=== PATIENT | male | born 1960 | race Caucasian/White ===

== ENCOUNTER 2024-04-05 14:20 | Emergency (ER) | payer OTHER, SELFPAY ==
--- NOTE | 2024-04-05 14:30 | ED.GENMED ---
ED Provider Triage
<Reyes Amaya Jr., PA-C - Last Filed: 04/07/24 07:02>
-
Patient seen by provider in Triage?: Seen in Triage
Attestation: A medical screening examination has been initiated by a qualified medical provider. Based on the assessment performed at this time, it has been determined that an emergent medical condition may exist and the patient has been informed
that further medical evaluation and possible additional diagnostic testing may be needed.
HPI: 63-year-old male presenting to the emergency department today with concerns of palpitations. Recently had a pericardial effusion which was drained at [facility] was initially at [facility]. Discharged 1 week ago. Labs/CXR
ordered
GENERAL: Alert , in no apparent distress
EYE: No visual abnormalities.
NECK: Trachea midline
ENT: No visible abnormalities.
LUNGS: No acute respiratory distress
NEUROLOGICAL: Alert and oriented
SKIN: Skin intact. No visible changes.
MUSCULOSKELETAL: Moving extremities normally
PSYCH: Normal and appropriate interaction.
This is a medical evaluation conducted in person to initiate diagnostic evaluation and provide initial therapeutics. Please see further documentation by the treating clinician.
History of Present Illness
<Reyes Amaya Jr., PA-C - Last Filed: 04/07/24 07:02>
General
Chief Complaint: Cardiac Symptoms
Time Seen by Provider: 04/05/24 14:50
<Padilla Burger PA-C - Last Filed: 04/05/24 17:35>
General
Source: patient
Exam Limitations: none
History of Present Illness
History of Present Illness:
63-year-old male with history of cholangiocarcinoma presents with palpitations onset about 2 hours prior to arrival. He was sitting and felt his heart started racing. His smart watch went from a heart rate in the 70s to 140. He has a history of
A-fib. He is on Eliquis. Of note recent history includes septic arthritis of his left knee that was initially treated at [facility]. While there he developed volume overload status and cardiac tamponade. He was flown to [facility]
and had pericardiocentesis. Since then he was switched to Eliquis. He also is on Lasix. He denies chest pain. He does note aching in his jaw. He denies shortness of breath. He states currently he feels a little bit better than what he did
earlier today. No vomiting or diarrhea. No fever. No other complaints at this time
Past History
<Reyes Amaya Jr., PA-C - Last Filed: 04/07/24 07:02>
Past History
ED Past Medical History: Arrthythmia (Atrial Fibrillation), Cancer and HTN
Social History
Tobacco: Non-smoker
Phy Exam
<Padilla Burger PA-C - Last Filed: 04/05/24 17:35>
Physical Exam
Physical Exam:
General: Well-appearing male no acute respiratory distress
HEENT: Normocephalic atraumatic
Heart: Regular rate and rhythm no murmurs
Lungs: Clear no obvious wheeze or rales
Abd: soft, nontender, nondistended
Ext: No cyanosis or edema
Course
<Reyes Amaya Jr., PA-C - Last Filed: 04/07/24 07:02>
Orders/Labs/Results
Orders:
Orders
04/05/24 14:21
Electrocardiogram (*1) Urgent
Reason for Study: Atrial Fibrillation
EKG- Treatment ONCE
04/05/24 14:30
CR Chest Portable - 1 View Urgent
Comment:
Reason For Exam: 64cp
Reason Study Needs to be Portable: Patient Unstable
04/05/24 14:40
Complete Blood Count/With Diff Urgent
Comprehensive Metabolic Panel Urgent
Magnesium Urgent
Manual Differential Urgent
NT-proBNP Urgent
PTT Urgent
Troponin I Urgent
Abnormal Lab Results
04/05/24
14:40
WBC 16.7 H 10^3/uL
(4.8-10.8)
RBC 4.38 L 10^6/uL
(4.70-6.10)
Hgb 10.6 L g/dL
(13.0-18.0)
Hct 34.3 L %
(39.0-52.0)
MCV 78.3 L fL
(80.0-94.0)
MCH 24.2 L pg
(27.0-31.0)
MCHC 30.9 L g/dL
(33.0-37.0)
RDW 27.0 H %
(11.5-14.5)
Abs Neuts (Manual) 13.6 H 10^3/uL
(1.4-6.5)
Segmented Neutrophils 80 H %
(42-75)
Lymphocytes (Manual) 2 L %
(20-51)
Monocytes (Manual) 11 H %
(2-9)
Sodium 134 L mmol/L
(135-145)
Chloride 94 L mmol/L
(98-107)
BUN 41 H mg/dl
(9-20)
Glucose 140 H mg/dl
(70-99)
Calcium 8.3 L mg/dl
(8.4-10.2)
ALT 54 H U/L
(0-50)
Alkaline Phosphatase 135 H U/L
(38-126)
04/05/24 14:40
04/05/24 14:40
Vital Signs
Initial and Last Documented VS:
Initial Vital Signs
Temp Pulse Resp Pulse Ox
97.8 F 107 18 97
04/05/24 14:30 04/05/24 14:30 04/05/24 14:30 04/05/24 14:30
Last Documented Vital Signs
Temp Pulse Resp BP Pulse Ox
97.8 F 80 16 102/66 95
04/05/24 14:30 04/05/24 17:30 04/05/24 17:30 04/05/24 17:00 04/05/24 17:30
<Padilla Burger PA-C - Last Filed: 04/05/24 17:35>
Orders/Labs/Results
Orders:
Orders
04/05/24 14:21
Electrocardiogram (*1) Urgent
Reason for Study: Atrial Fibrillation
EKG- Treatment ONCE
04/05/24 14:30
CR Chest Portable - 1 View Urgent
Comment:
Reason For Exam: 64cp
Reason Study Needs to be Portable: Patient Unstable
04/05/24 14:40
Complete Blood Count/With Diff Urgent
Comprehensive Metabolic Panel Urgent
Magnesium Urgent
Manual Differential Urgent
NT-proBNP Urgent
PTT Urgent
Troponin I Urgent
Abnormal Lab Results
04/05/24
14:40
WBC 16.7 H 10^3/uL
(4.8-10.8)
RBC 4.38 L 10^6/uL
(4.70-6.10)
Hgb 10.6 L g/dL
(13.0-18.0)
Hct 34.3 L %
(39.0-52.0)
MCV 78.3 L fL
(80.0-94.0)
MCH 24.2 L pg
(27.0-31.0)
MCHC 30.9 L g/dL
(33.0-37.0)
RDW 27.0 H %
(11.5-14.5)
Abs Neuts (Manual) 13.6 H 10^3/uL
(1.4-6.5)
Segmented Neutrophils 80 H %
(42-75)
Lymphocytes (Manual) 2 L %
(20-51)
Monocytes (Manual) 11 H %
(2-9)
Sodium 134 L mmol/L
(135-145)
Chloride 94 L mmol/L
(98-107)
BUN 41 H mg/dl
(9-20)
Glucose 140 H mg/dl
(70-99)
Calcium 8.3 L mg/dl
(8.4-10.2)
ALT 54 H U/L
(0-50)
Alkaline Phosphatase 135 H U/L
(38-126)
04/05/24 14:40
04/05/24 14:40
Vital Signs
Initial and Last Documented VS:
Initial Vital Signs
Temp Pulse Resp Pulse Ox
97.8 F 107 18 97
04/05/24 14:30 04/05/24 14:30 04/05/24 14:30 04/05/24 14:30
Last Documented Vital Signs
Temp Pulse Resp BP Pulse Ox
97.8 F 80 16 102/66 95
04/05/24 14:30 04/05/24 17:30 04/05/24 17:30 04/05/24 17:00 04/05/24 17:30
<Padilla Burger PA-C - Last Filed: 04/05/24 17:35>
MDM/Problems Addressed
Differential Diagnosis Includes:
Sensation of palpitations. He feels like he is in A-fib. EKG shows sinus tachycardia. Will check labs. Concern for possible overdiuresis secondary to slight fatigue. Check electrolytes and renal functions. Chest x-ray pending.
<Padilla Burger PA-C - Last Filed: 04/05/24 17:35>
*Critical Care Note
Total Time (30-74mins, 75-104mins- exclusive of procedures): Not Applicable
<Padilla Burger PA-C - Last Filed: 04/05/24 17:35>
Update Note
Update Note:
Patient reevaluated. Heart rate now in the 80s shows normal sinus rhythm. Feels much better has no complaints. Workup here without significant finding. There is some leukocytosis. This is nonspecific. Troponin undetectable. Chest x-ray shows
atelectasis. No respiratory distress. 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 Stable for discharge. Patient may have had an episode of atrial fibrillation at
home but he was not in A-fib upon arrival here
ED Attending Note
<Reyes Amaya Jr., PA-C - Last Filed: 04/07/24 07:02>
-
Portions of this chart may have been created with voice recognition software.� Occasional wrong word or��sound alike� substitutions may have occurred due to the inherent limitations of voice recognition software.
Discharge Plan
Departure
Patient Disposition: Home (Routine Discharge)
Date of Disposition: 04/05/24
Time of Disposition: 17:34
Patient with high blood pressure during this ER visit?: No
Discharge Problem:
Palpitations
Instructions: Palpitations
Prescriptions:
No Action
metoprolol succinate 50 MG tablet extended release 24 hr
50 mg PO BID
calcium carbonate [Antacid (calcium carbonate)] 1 TABLET tablet,chewable
2 tab PO Q4HPRN PRN (Reason: gerd)
oxycodone 5 MG tablet
5 mg PO Q4HPRN PRN (Reason: mild pain)
apixaban [Eliquis] 5 MG tablet
5 mg PO BID
B complex-vitamin C-folic acid 400 MCG tablet
400 mcg PO DAILY Qty: 60 0RF
Referrals:
Meri Wild MD [Family Provider] -
Activity Restrictions/Additional Instructions:
Continue current medication regimen. Stay hydrated. Return here for worsening symptoms otherwise follow-up with your doctors as planned
Interventions
Interventions:
*Risk Screen - Suicide Last Done: 04/05/24 15:00
*General Assessment Last Done: 04/05/24 15:00
*Neglect/Abuse Screening Last Done: 04/05/24 15:00
ED- Fall Risk Assessment Last Done: 04/05/24 17:51
*Nursing Disposition Last Done: 04/05/24 17:51
ED- Pulmonary Assessment Last Done: 04/05/24 15:00
ED- Cardiac Assessment Last Done: 04/05/24 15:00
Discharge Date and Time
Discharge Date/Time: 04/05/24 17:51
Print Language: UKRAINIAN
[2024-04-05 14:40] VITALS: BP 98/68
[2024-04-05 15:00] VITALS: BP 109/69
[2024-04-05 15:28] LABS: APTT 27.4 Sec (23.4-35.0)
[2024-04-05 15:29] LABS: ALT (SGPT) 54 U/L (0-50); AST (SGOT) 46 U/L (17-59); Albumin 3.6 g/dl (3.5-5.0); Alkaline Phosphatase 135 U/L (38-126); Blood Urea Nitrogen 41 mg/dl (9-20); Calcium 8.3 mg/dl (8.4-10.2); Carbon Dioxide 30 mmol/L (22-30); Chloride 94 mmol/L (98-107); Glucose 140 mg/dl (70-99); Magnesium 1.8 mg/dl (1.6-2.3); Potassium 3.9 mmol/L (3.5-5.1); Sodium 134 mmol/L (135-145); Total Bilirubin 1.1 mg/dl (0.2-1.3); Total Protein 6.7 g/dl (6.3-8.2); eGFR > 60.00
[2024-04-05 15:39] LABS: Troponin I < 0.012 ng/ml
[2024-04-05 15:57] LABS: NT-proBNP 1570 pg/ml
[2024-04-05 16:00] VITALS: BP 96/66
[2024-04-05 16:24] LABS: Hematocrit 34.3 % (39.0-52.0); Hemoglobin 10.6 g/dL (13.0-18.0); Mean Corp Hgb Conc. 30.9 g/dL (33.0-37.0); Mean Corpuscular Hgb 24.2 pg (27.0-31.0); Mean Corpuscular Volume 78.3 fL (80.0-94.0); Platelet Count 182 10^3/uL (130-400); Red Blood Cell Count 4.38 10^6/uL (4.70-6.10); White Blood Cell Count 16.7 10^3/uL (4.8-10.8)
[2024-04-05 16:25] LABS: Absolute Neutrophils -Man Diff 13.6 10^3/uL (1.4-6.5); Anisocytosis 3+; Atypical Lymphocytes 3 %; Band Neutrophils 2 % (0-3); Hypochromasia 2+; Lymphocytes 2 % (20-51); Macrocytosis 3+; Metamyelocytes 2 % (-); Monocytes 11 % (2-9); Normal RBC Morphology No; Platelets Checked Yes; Segmented Neutrophils 80 % (42-75)
[2024-04-05 16:26] LABS: Schistocytes 1+; Target Cells 1+; Tear Drop Red Blood Cells 1+; Total Cells Counted 100
[2024-04-05 17:00] VITALS: BP 102/66
== END 2024-04-05 17:51 | disposition home or self-care (01) ==
LOC: EMR 14:20
PROVIDERS: Physician Assistant; EMERGENCY PHYSICIAN Emergency Medicine; FAMILY PHYSICIAN Internal Medicine
DX: R00.2 Palpitations (principal); I48.91 Unspecified atrial fibrillation; I10 Essential (primary) hypertension; Z79.01 Long term (current) use of anticoagulants
CPT/HCPCS: 99283; 71045; 80053; 83735; 83880; 84484; 85025; 85730; 93005